=== PATIENT | female | born 1950 | race Caucasian/White ===

== ENCOUNTER 2022-09-06 06:17 | Observation (INO) ==
--- NOTE | 2022-07-26 10:37 | PAT Medication Instructions ---
Medication Instructions Date of Service July 26, 2022 Home Medications acetaminophen 500 mg tablet (Acetaminophen Extra Strength) 1,000 mg PO HS apixaban 5 mg tablet (Eliquis) 5 mg PO BID aspirin 81 mg capsule 81 mg PO QAM cholecalciferol (vitamin D3) 125 mcg (5,000 unit) tablet (Vitamin D3) 125 mcg PO QAM fiber 1 cap PO QPM metoprolol tartrate 50 mg tablet 50 mg PO BID potassium 99 mg tablet 99 mg PO HS simvastatin 40 mg tablet 40 mg PO HS turmeric root extract 500 mg capsule 500 mg PO QPM ASK your prescriber and surgeon apixaban 5 mg tablet (Eliquis) 5 mg PO BID(in order for spinal or epidural anesthesia, Eliquis needs to be stopped 72 hours/3 days before surgery. Please check if okay with doctor that prescribes this to you) STOP taking 2 weeks before surgery fiber 1 cap PO QPM turmeric root extract 500 mg capsule 500 mg PO QPM DO NOT take the morning of surgery cholecalciferol (vitamin D3) 125 mcg (5,000 unit) tablet (Vitamin D3) 125 mcg PO QAM Take morning of surgery With a small sip of water, OTHERWISE NOTHING TO EAT OR DRINK AFTER MIDNIGHT: aspirin 81 mg capsule 81 mg PO QAM (unless directed otherwise by surgeon) metoprolol tartrate 50 mg tablet 50 mg PO BID Take evening before surgery acetaminophen 500 mg tablet (Acetaminophen Extra Strength) 1,000 mg PO HS potassium 99 mg tablet 99 mg PO HS simvastatin 40 mg tablet 40 mg PO HS metoprolol tartrate 50 mg tablet 50 mg PO BID Other Notes If you have any questions please call us at [phone] or [phone] or [phone] or [phone]
--- NOTE | 2022-07-29 14:10 | Anesthesiology Consultation ---
Date of Service July 29, 2022 Assessment & Plan (1) Encounter for pre-operative examination: - pt reports upcoming PCP (Dr. Rodriguez [facility]) and cardiology (Dr. Durand [facility]) pre- op appts, she is unsure of dates. Outpatient joint assessment: Patient is currently scheduled for inpatient pathway. If re-evaluated pending system levels during current pandemic/surgeon requests outpatient pathway, patient is not recommended candidate for outpatient joint program from anesthesia standpoint. Chart Review Chart Review: Pending: Refer to Additional Notes / Consult section and Patient seen in Pre Admission Testing Teaching & Discussion Pre-Anesthesia Teaching/Discussion Notes: Instructed NPO after midnight before surgery, except medications with 15 cc of water. Medication instructions p rovided according to the PAT guidelines. History Surgery Operation Date: 09/06/22 08:10 Proposed Procedures p Right Total Knee Arthroplasty - Peña Castorena DO Height/Weight Height: 5 ft 2 in Weight: 70.307 kg Allergies Allergy/AdvReac Type Severity Reaction Status Date / Time Penicillins Allergy Unknown "not sure Verified 07/26/22 07:34 of reaction, it was many years ago" erythromycin base AdvReac Unknown Nausea Verified 07/26/22 07:34 Medications Home Medications Medication Instructions Recorded Confirmed Last Taken acetaminophen 500 mg tablet 1,000 mg PO HS 07/26/22 07/26/22 Unknown (Acetaminophen Extra Strength) apixaban 5 mg tablet (Eliquis) 5 mg PO BID 07/26/22 07/26/22 Unknown aspirin 81 mg capsule 81 mg PO QAM 07/26/22 07/26/22 Unknown cholecalciferol (vitamin D3) 125 125 mcg PO QAM 07/26/22 07/26/22 Unknown mcg (5,000 unit) tablet (Vitamin D3) fiber 1 cap PO QPM 07/26/22 07/26/22 Unknown metoprolol tartrate 50 mg tablet 50 mg PO BID 07/26/22 07/26/22 Unknown potassium 99 mg tablet 99 mg PO HS 07/26/22 07/26/22 Unknown simvastatin 40 mg tablet 40 mg PO HS 07/26/22 07/26/22 Unknown turmeric root extract 500 mg 500 mg PO QPM 07/26/22 07/26/22 Unknown capsule Past Medical History Medical History (Updated 07/29/22 @ 14:13 by Giselle Pacheco PA-C) A-fib on eliquis; f/u [facility] Last seen 07/2021 - f/u in one year Aortic root dilation Ascending aorat 4.1cm on 07/2021 ECHO Cardiomyopathy Per records Most recent EF on ECHO 2020 55-60% GERD (gastroesophageal reflux disease) controlled, stable per pt History of COVID-19 x2, most recent end of 04/2022, home test, not hosp; body aches, headache>resolved. Hx of simple renal cyst monitoring Hyperlipidemia Hypertension controlled, stable per pt Nausea and vomiting after administration of anesthetic agent severe, denies needing scop patch PFO (patent foramen ovale) Possible cause of CVA in 2010; after stroke, sent to [place] to see if PFO should be closed, 'bj felt it was too dangerous; f/u dr durand, [facility] Stroke 2010, [facility], [place]; [place] peduncle [place]; decreased horizontal vision in her right eye; f/u dr durand, [facility] cardio. Patient denies h/o seizures, heart attack, DM, blood clots or blood transfusions. Exercise / Class Metabolic Activity II 4-5 Yardwork/Stairs/Walk up hill (denies CP or SOB with 1 FOS) Past Surgical History Surgical History Hx of carpal tunnel repair rt. Hx of colonoscopy Hx of laparoscopy removal rt ovary Hx of tonsillectomy Past Anesthesia History No Hx of Anesthesia Complications and No Family Hx of Anesthesia Complications History of PONV History of PONV (severe, denies needing scop patch) and Hx of Motion Sickness Social History Smoking Status: Never smoker Do You Dip or Chew Tobacco: No Hx Alcohol Use: Yes Alcohol type: hard liquor alcohol intake frequency: holidays/special occasions only Hx Substance Use: No substance use type: does not use Review of Systems Patient denies chest pain, shortness of breath, dyspnea on exertion, snoring, witnessed apneas, fever, chills, cough, wheezing, or palpitations. Physical Exam Vital Signs Vitals BP 109/73 P 69 TEMP 97.6 SP02 95% on RA RESP 17 Physical Full cervical extension range of motion without pain TMD 3.5 finger breadths Mallampati Score 2 Dentition: intact, denies chipped or loose teeth, caps/crowns, implants or bridges Lungs: normal respiratory effort. Clear throughout to auscultation, no adventitious breath sounds Cardiac: regular rate and rhythm, no murmurs noted Carotid arteries: negative bruit bilat Lab Results Anesthesia Preop Results Results Anesthesia Widget: WBC 5.62 K/ul (4.8-10.8) 07/29/22 Hgb 14.0 g/dl (12.0-16.0) 07/29/22 Hct 42.9 % (34.1-44.9) 07/29/22 Plt 238 K/uL (130-400) 07/29/22 Na 141 mmol/L (136-145) 07/29/22 K 4.4 mmol/L (3.5-5.1) 07/29/22 Cl 106 mmol/L (98-107) 07/29/22 CO2 31 mmol/L (21-32) 07/29/22 BUN 17 mg/dl (6-23) 07/29/22 Creat 0.54 mg/dl (0.6-1.2) L 07/29/22 Glucose Level 87 mg/dl (70-99(Fasting)) 07/29/22 PT 11.3 Seconds (9.0-12.0) 07/29/22 PTT 28.6 Seconds (21.0-31.0) 07/29/22 INR 1.1 (0.9-1.1) 07/29/22 Urine Color Yellow 07/29/22 Urine Appearance Clear (Clear) 07/29/22 Urine pH 7.0 (4.5-7.5) 07/29/22 Urine Specific [place] 1.015 (1.000-1.030) 07/29/22 Urine Protein Negative (Negative) 07/29/22 Urine Glucose (UA) Negative (Negative) 07/29/22 Urine Ketones Negative (Negative) 07/29/22 Urine Blood Trace (Negative) H 07/29/22 Urine Nitrite Negative (Negative) 07/29/22 Urine Bilirubin Negative (Negative) 07/29/22 Urine Urobilinogen Negative (Negative) 07/29/22 Urine Leukocyte Esterase Negative (Negative) 07/29/22 Urine WBC (Auto) 1-5 /hpf (0-5) 07/29/22 Urine RBC (Auto) 0-4 /hpf (0-4) 07/29/22 Urine Hyaline Casts (Auto) 0 /lpf (0-5) 07/29/22 Urine Epithelial Cells (Auto) 0-5 /lpf (0-5) 07/29/22 Urine Bacteria (Auto) Negative (Negative) 07/29/22 Blood Type A Positive 07/29/22 Antibody Screen NEGATIVE 07/29/22 Testing Electrocardiogram Date: 02/19/22 Sinus rhythm, rate 95 bpm Marked left axis deviation Poor R wave progression Nonspecific T wave abnormality Chest X-Ray Date: 07/29/22 Lung volumes are normal. There is no consolidation to suggest pneumonia. Minimal opacity along the left heart border favors atelectasis. There is no pneumothorax or pleural effusion. Cardiac size is normal. Mediastinal contours are normal. There is no evidence for pulmonary edema. IMPRESSION: No acute cardiopulmonary findings. Echocardiogram Date: 07/30/21 EF 55-60% Cannot rule out RWMA-technically difficult study Ascending aorta 4.1 cm. Trileaflet aortic valve, mild AI Grade I diastolic dysfunction Stress Test Date: 10/25/18 Exercise MPHR 99% METS 7 No EKG criteria for myocardial ischemia EF 67% Normal wall motion COVID-19 Risk Screen Screening Information COVID-19 Screen Date: 07/29/22 Exposure 21 Days Family/Household +COVID Last 21 Days: No Exposure 10 Days Any COVID Exposure Last 10 Days: No Symptoms Last 10 Days Experienced COVID Sx Last 10 Days: No + COVID 0-90 Days COVID + in Last 0-90 Days: No
--- NOTE | 2022-08-12 12:18 | History & Physical Report ---
Date of Service August 12, 2022 date of surgery: 09/06/22 Procedure: Right Total Knee Arthroplasty Surgeon: Peña Castorena Assessment & Plan (1) Arthritis of right knee: Plan: Risks and benefits of procedure discussed in detail today, patient would like to proceed with a Right total knee replacement at [facility] as scheduled. Will resume her Eliquis post op, f/u 2 weeks post op for routine post-operative care and x-ray, sooner if having any problems. will make arrangements for HHPT at the time of discharge. At this point in time, has failed conservative measures and would like to proceed with surgical intervention. The risks and benefits have been discussed including, but not limited to, risk of infection, nerve injury, stiffness, loss of motion, failure to improve, etc. Reasonable outcomes and options of treatment were discussed. An explanation of appropriate alternatives to the procedure that may be advantageous were discussed and their risks and benefits, as well as the risks and benefits of not proceeding with treatment. I offered to answer any additional inquiries concerning the treatment involved. All the patient's questions were answered. The patient is agreeable, understanding of the treatment plan and alternatives, and wishes to proceed with the treatment plan. History of Present Illness Chief Complaint: right knee pain Isabel is a 72-year-old female presents for preop evaluation prior to right total knee replacement. She has been having pain in this knee for many years now which is gradually worsened. She uses Tylenol for pain and is unable to take anti-inflammatories secondary to taking Eliquis for A. fib. At this point time she has failed conservative measures and she would like to proceed with a right total knee replacement Allergies Allergy/AdvReac Type Severity Reaction Status Date / Time Penicillins Allergy Unknown "not sure Verified 07/26/22 07:34 of reaction, it was many years ago" erythromycin base AdvReac Unknown Nausea Verified 07/26/22 07:34 Home Medications Medication Instructions Recorded Confirmed Type acetaminophen 500 mg tablet 1,000 mg PO HS 07/26/22 07/26/22 History (Acetaminophen Extra Strength) apixaban 5 mg tablet (Eliquis) 5 mg PO BID 07/26/22 07/26/22 History aspirin 81 mg capsule 81 mg PO QAM 07/26/22 07/26/22 History cholecalciferol (vitamin D3) 125 125 mcg PO QAM 07/26/22 07/26/22 History mcg (5,000 unit) tablet (Vitamin D3) fiber 1 cap PO QPM 07/26/22 07/26/22 History metoprolol tartrate 50 mg tablet 50 mg PO BID 07/26/22 07/26/22 History potassium 99 mg tablet 99 mg PO HS 07/26/22 07/26/22 History simvastatin 40 mg tablet 40 mg PO HS 07/26/22 07/26/22 History turmeric root extract 500 mg 500 mg PO QPM 07/26/22 07/26/22 History capsule Past Med/Surg History Medical History A-fib on eliquis; f/u [facility] Last seen 07/2021 - f/u in one year Aortic root dilation Ascending aorat 4.1cm on 07/2021 ECHO Cardiomyopathy Per records Most recent EF on ECHO 2020 55-60% GERD (gastroesophageal reflux disease) controlled, stable per pt History of COVID-19 x2, most recent end of 04/2022, home test, not hosp; body aches, headache>resolved. Hx of simple renal cyst monitoring Hyperlipidemia Hypertension controlled, stable per pt Nausea and vomiting after administration of anesthetic agent severe, denies needing scop patch PFO (patent foramen ovale) Possible cause of CVA in 2010; after stroke, sent to [place] to see if PFO should be closed, 'bj felt it was too dangerous; f/u dr durand, [facility] cardio Stroke 2010, [facility], in [place]; [place] peduncle [place]; decreased horizontal vision in her right eye; f/u dr durand, [facility] cardio. Surgical History Hx of carpal tunnel repair rt. Hx of colonoscopy Hx of laparoscopy removal rt ovary Hx of tonsillectomy Social History Smoking Status: Never smoker Second Hand Exposure: Yes ( smoked); Hx Alcohol Use: Yes Alcohol type: hard liquor Hx Substance Use: No Preferred Language: Swazi Communication Ability: Effective Flatbed Stitcher Required: No Beliefs That Will Affect Care: None Current Living Situation: Spouse Feels Safe at Home: Yes Assistive Devices: Glasses Review of Systems Review of Systems: All systems reviewed & are unremarkable except as noted in HPI & below Constitutional: no fever, no chills and no sweats Respiratory: no cough and no dyspnea Cardiovascular: no chest pain, no dyspnea and no orthopnea Gastrointestinal: no abdominal pain, no nausea and no vomiting Musculoskeletal: as per Subjective / HPI Physical Exam Physical Exam: HT: 5ft 2in WT: 71.9kg Constitutional: WD/WN, vitals as above no acute distress Respiratory: normal respiratory effort, lungs clear to auscultation no respiratory distress, no labored breathing and does not use accessory muscles Cardiovascular: RRR, no murmur, no edema Gastrointestinal (Abdomen): normal bowel sounds, soft, nontender, no hepatosplenomegaly Musculoskeletal: Knee: + knee abnormal to inspection (RIGHT KNEE), + effusion (+1 effusion), + limited ROM of knee (ROM 0/3/110), + knee ROM with crepitation, + joint line tenderness (medial joint line) and + La's sign positive; no deformity, no skin erythema, no ecchymosis, no valgus laxity, no varus laxity, anterior drawer test negative, Nahum's sign negative and pivot shift test negative Results & Data Results & Data ([facility]) Diagnostic Findings AP and flexion view of the right knee show advanced degenerative changes to the right knee greatest lateral compartment with overall valgus alignment, showing joint space narrowing osteophyte formation subchondral sclerosis. No acute bony pathology
[~2022-09-06 06:17] MED LIST: ACETAMINOPHEN 500 MG TAB PO SCH; CeleBREX 200 MG CAP PO SCH; FAMOTIDINE 20 MG TAB PO SCH; GABAPENTIN 300 MG CAP PO SCH; LR 500ML BOLUS, THEN 15ML/HR IV SCH; METOCLOPRAMIDE HCL 10 MG TABLET PO SCH; ROPIVACAINE 0.5% HCL/PF 150 MG, BUPIVACAINE 0.75% MPF 20 ML, EPINEPHrine 30MG/30ML (OR ... INFIL SCH; VANCOMYCIN HCL 1,000 MG/270 ML BAG IV SCH; dexAMETHasone 4 MG TAB PO SCH
[2022-09-06] MEDS ORDERED: BUPIVACAINE 0.25% 30 ML VIAL ONE (06:36)
[2022-09-06] MEDS ORDERED: EPINEPHrine INJ 1 MG/ML AMP ONE (06:36)
[2022-09-06] MEDS ORDERED: DEXAMETHASONE SOD INJ 4 MG/ML VIAL ONE (06:36)
[2022-09-06] MEDS ORDERED: BUPIVACAINE 0.5 % 5 MG/1 ML PF 10ML VIAL ONE (06:36)
[2022-09-06] MEDS ORDERED: PROPOFOL IV EMULSION 10 MG/ML 20 ML VIAL IV ONE (08:12)
[2022-09-06] MEDS ORDERED: LIDOCAINE 2% MPF LOCAL 5 ML VIAL INFIL ONE (08:12)
[2022-09-06] MEDS ORDERED: MIDAZOLAM HCL 1 MG/ML 2ML VIAL ONE (08:12)
[2022-09-06] MEDS ORDERED: ONDANSETRON INJ 2 MG/ML 2 ML VIAL ONE (08:12)
[2022-09-06] MEDS ORDERED: fentaNYL citrate 100 MCG/2 ML VIAL ONE ×2 (08:12→10:19)
[2022-09-06] MEDS ORDERED: ONDANSETRON INJ 2 MG/ML 2 ML VIAL IV PRN ×2 (08:59→13:54)
[2022-09-06] MEDS ORDERED: TRANEXAMIC ACID / 0.7% NACL 1,000 MG/100 ML BAG IV ONE ×2 (08:59)
[2022-09-06] MEDS ORDERED: PROMETHAZINE HCL 6.25 MG in SODIUM CHLORIDE 0.9% 50 ML IV PRN (08:59)
[2022-09-06] MEDS ORDERED: fentaNYL citrate 100 MCG/2 ML VIAL IV PRN (08:59)
[2022-09-06] MEDS ORDERED: ePHEDrine sulfate 50 MG/ML AMP IV PRN (08:59)
[2022-09-06] MEDS ORDERED: ATROPINE SULFATE 0.1 MG/ML 10ML SYR IV PRN (08:59)
[2022-09-06] MEDS ORDERED: TRANEXAMIC ACID / 0.7% NACL 1000MG/100ML BAG IV ONE (09:03)
--- NOTE | 2022-09-06 09:03 | History & Physical Bridge Note ---
Date of Service September 06, 2022 History & Physical Bridge Note I have examined the patient, reviewed the History & Physical and in the interval since the performance of the History & Physical I have noted the following changes of clinical significance: no changes noted
[2022-09-06] MEDS ORDERED: ORTHO JOINT ANESTHETIC ONE (10:03)
[2022-09-06] MEDS ORDERED: GLYCOPYRROLATE 0.2 MG/ML VIAL ONE (10:45)
--- NOTE | 2022-09-06 11:10 | Operative Report ---
Post Operative Report Pre & Post Diagnosis Operation Date: 09/06/22 09:35 Pre-Op Diagnosis: Arthritis of Right Knee Post-Op Diagnosis: Arthritis of Right Knee I identified the patient and participated in the time-out.: Yes Procedure Operation Date: 09/06/22 09:35 Actual Procedures p Right Total Knee Arthroplasty(Right) utilizing [employer] journey 2 p atient matched size femur 5 tibia 3 polythirteen patella 29 braden- Peña Castorena DO Surgeon Peña Castorena DO [employer] QUIN Contreras Estimated Blood Loss 5 Findings Consistent with Post-Op Diagnosis Patient presents severe end-stage tricompartmental DJD hyperextension recurvatum medial lateral collateral ligament laxity. Eburnated [id number] subchondral sclerosis and marginal osteophytes Specimens Bone and cartilage Drains Medium bore Hemovac Anesthesia Type MAC Spinal Regional Complications none Disposition Accompanied Patient To Recovery: No Disposition: Recovery Room Indications Patient presents severe end-stage DJD failed attempted conservative measures including physical therapy anti-inflammatories relative rest activity modification corticosteroid injection viscosupplementation relative rest the above intraoperative findings were noted Description of Procedure After proper prepping and draping of the Right lower extremity anterior midline incision was made over the region of the extensor extensor mechanism after meticulous hemostasis was obtained and maintained in subcutaneous tissues a medial parapatellar incision was made The patella was subluxed lateralward the medial lateral gutter were cleaned from any hypertrophic synovitis and scar tissue of the distal femoral block was placed and the distal femoral osteotomy cut was made subsequently the chamfers anterior and posterior osteotomy cuts were made utilizing the 4-in-1 block the tibia was subsequently subluxed anteriorward medial and ateral meniscal remnants were excised in their entirety remnants of the anterior and posterior cruciate ligaments were excised in their entirety excellent exposure of the proximal tibia was obtained the tibial osteotomy guide was placed on the proximal tibial osteotomy cut was made once again the knee was irrigated with copious amounts of sterile saline solution the patella was subsequently everted lateralward thickened scar tissue around the patella was removed the patella was subsequently cut utilizing a freehand technique and was drilled prepared for final preparation and placement of patella socially flexion-extension gaps were checked and the equal and symmetric trials were placed to the appropriate femoral and tibial trials with poly-spacer being placed for equal flexion and extension gaps and full range of motion including extension to 0 and flexion to 140 the trial components after having been taken to recovery range of motion was subsequently removed meticulous hemostasis was obtained and maintained subsequently a knee block injection of joint cocktail including ropivacaine 0.5% 150 mg. Bupivacaine 0.5% epinephrine 1-200,030 mL's toradol 30 mg dexamethasone 4 mg ketamine 10 mg clonidine 100 micrograms normal saline solution 30 mg was infiltrated into the soft tissues of the posterior knee medial lateral gutters and periosteal synovium special attention was paid to protect neurovascular structures at all times subsequently trial components having been removed the knee was irrigated with sterile saline solution. debris was removed the proximal tibia was subsequently prepared and was made ready for the placement of the tibial component tibial component was also cemented and tamped into position the femoral component was subsequently placed and cemented in the position the patellar component was subsequently cemented in position because hemostasis once again obtained and maintained wound having been thoroughly irrigated with debridement and debridement lavage was performed as well as a medial parapatellar incision closed with #1 Vicryl in interrupted fashion subcutaneous was closed with #2 Vicryl skin was closed with skin clips. PA-C was necessary for prepping and drapping as well as wound closure of deep fascia Sub cutaneous tissue and skin and was necessary for the case. A sterile compressive dressing was placed patient was taken to recovery in stable condition of report dictated by Raffaele I attest to the content of the Intraoperative Record and any orders documented therein. Any exceptions are noted below.Due to the complex nature of the procedure, the entire surgery was performed with the operational assistance of QUIN Contreras. The digital marketing assistant, under direct supervision, was involved in the actual performance of all aspects of the surgical procedure including hemostasis, tissue retraction and incision, instrument management, patient positioning, and wound closure. I attest to the content of the Intraoperative Record and any orders documented therein. Any exceptions are noted below.
--- NOTE | 2022-09-06 11:57 | Anesthesiology Progress Note ---
Date of Service September 06, 2022 Anesthesia Post Procedure Vital Signs Vital Signs: Temp Pulse Resp BP Pulse Ox O2 Del Method 09/06/22 06:52 36.5 C 63 18 145/96 H 99 Room Air Transfer of Care Handoff Completed per policy Notes Mental Status: alert / awake / arousable Patient Amnestic to Procedure: Yes Nausea / Vomiting: adequately controlled Pain: adequately controlled Airway Patency, RR, SpO2: stable & adequate BP & HR: stable & adequate Hydration State: stable & adequate Anesthetic Complications: no major complications apparent
[2022-09-06] MEDS ORDERED: NALOXONE HCL 0.4 MG/1 ML VIAL/CARP IV PRN (13:54)
[2022-09-06] MEDS ORDERED: diphenhydrAMINE Capsule 25 MG CAP PO PRN (13:54)
[2022-09-06] MEDS ORDERED: MAGNESIUM HYDROXIDE SUSP 30 ML UDC PO PRN (13:54)
[2022-09-06] MEDS ORDERED: oxyCODONE HCL IR 5 MG TAB (IMMEDIATE RELEASE) PO PRN (13:54)
[2022-09-06] MEDS ORDERED: METOCLOPRAMIDE HCL INJ 5 MG/ML 2 ML VIAL IV PRN (13:54)
[2022-09-06] MEDS ORDERED: HYDROmorphone INJ 1 MG/ML SYRINGE IV PRN (13:54)
[2022-09-06] MEDS ORDERED: bisacodyL 10 MG SUPP PR PRN (13:54)
[2022-09-06] MEDS ORDERED: VANCOMYCIN CONSULT ACTIVE PRN (13:54)
--- NOTE | 2022-09-06 14:39 | XRay Report ---
XR knee RT 1 or 2V routine CLINICAL HISTORY: Surgical Post Op TECHNIQUE: 2 views of the right knee were obtained. Comparison: None available at the time of this dictation. FINDINGS: Patient is status post total knee arthroplasty with expected postsurgical changes including soft tiss ue swelling and subcutaneous emphysema. No periarticular lucency or hardware fracture is seen. IMPRESSION: Expected postoperative appearance status post placement of total knee arthroplasty. ACT 112: Negative or not required by law. Electronically signed by: Riley Horan M.D. 09/06/2022 2:38 PM
[2022-09-06] MEDS: ACETAMINOPHEN 500 MG TAB PO SCH ×2 (14:45→20:42)
[2022-09-06] MEDS: SODIUM CHLORIDE 0.9% 1000ML 1,000 ML IV SCH (14:46)
--- NOTE | 2022-09-06 14:47 | Hospitalist Consultation ---
Date of Consultation September 06, 2022 Assessment & Plan (1) Status post total right knee replacement: -Patient is currently afebrile, hemodynamically stable, and stable on 2L NC -Perioperative abx, DVT PPX, IV fluids, and analgesia per the primary team -Agree with am CBC and BMP -Patient noted to have some soft blood pressures of 109/70 post-op, she took her am dose of metoprolol and also had spinal anesthesia per the operative report, would continue the IV fluids overnight as she has no significant hear failure and appears Euvolemic on exam -Ordered daily famotidine for stress ulcer prophylaxis while admitted -Medicine will continue to follow for now (2) Hypertension: -Continue metoprolol as long as she is hemodynamically stable (3) A-fib: -Currently rate controlled -Continue metoprolol -Agree with restarting Eliquis tomorrow as long as she is stable, as stable Hgb, and is without signs of active bleeding (4) Cardiomyopathy: -Currently euvolemic on exam -LVEF of 55-60% as of 2020 -Continue IV fluids for now and monitor for signs of volume overload (5) Hyperlipidemia: -Conitnue statin (6) GERD (gastroesophageal reflux disease): -daily famotidine while admitted Plan The patient was discussed with Dr. Atwood at the time of the consult Supervising Physician Co-Signing Physician Notes I personally saw and examined the patient. I verified all viramontes points and agree with Tani Cordon PA-C with the following exceptions and/or additions: 72 year old POD #0, right TKA. Feeling tired but otherwise no complaints. No dizziness on standing. Took her metoprolol this morning pre-operatively. O/E A&Ox3, RRR, HS1+2, no murmurs, Chest CTAB, Abdo SNT A/P Pain, VTE management per orthopedics HTN, paroxysmal a. fib - continue metoprolol and reduce parameters to HR < 50 for holding, Eliquis restart per orthopedic recommendations Thank you for the consult. No acute medical needs identified and she appears to be stable from a medical perspective. We will continue to chart check but sign off at this time. Please call [facility] [place] health promotion manager for any questions or concerns. History of Present Illness Reason for Consultation: Post-op medical management Requesting Physician: Peña J Castorena, DO Attending Physician: Dr. Ramy Atwood History of Present Illness Isabel is a 72 year old female with a PMH significant for afib on eliquis, hyperlipidemia, HFpEF (LVEF of 55-60% as of 07/30/21) aneurysm of the ascending aorta without rupture, CAD, and vitamin D deficiency who presented to the [facility] OR on 09/06/22 for elective Right Total Knee Arthroplasty with Dr. Castorena. Per the operative report, there were no reported intraoperative complications, anesthesia was listed as "[facility]", and EBL was listed at 5 cc. Review of her vitals prior to evaluation show a stable BP, HR in the 50's-70's, and shows the patient stable on 2L NC. At the time of the exam the patient was resting comfortably in bed in no acute distress with her sitting bedside. When asked, she states that she is having some mild RLE pain and fatigue after her procedure, otherwise she has no other complaints. I confirmed with her that she had her am dose of metoprolol prior to her procedure. When asked, she does not wear oxygen at baseline and does not use CPAP or bipap at night. Please refer to Dr. Atwood's attestation for any changes to the treatment plan Allergies Allergy/AdvReac Type Severity Reaction Status Date / Time Penicillins Allergy Unknown "not sure Verified 09/06/22 06:46 of reaction, it was many years ago" erythromycin base AdvReac Unknown Nausea Verified 09/06/22 06:46 Home Medications Medication Instructions Recorded Confirmed Type acetaminophen 500 mg tablet 1,000 mg PO HS 07/26/22 09/06/22 History (Acetaminophen Extra Strength) apixaban 5 mg tablet (Eliquis) 5 mg PO BID 07/26/22 09/06/22 History aspirin 81 mg capsule 81 mg PO QAM 07/26/22 09/06/22 History cholecalciferol (vitamin D3) 125 125 mcg PO QAM 07/26/22 09/06/22 History mcg (5,000 unit) tablet (Vitamin D3) fiber 1 cap PO QPM 07/26/22 09/06/22 History metoprolol tartrate 50 mg tablet 50 mg PO BID 07/26/22 09/06/22 History potassium 99 mg tablet 99 mg PO HS 07/26/22 09/06/22 History simvastatin 40 mg tablet 40 mg PO HS 07/26/22 09/06/22 History turmeric root extract 500 mg 500 mg PO QPM 07/26/22 09/06/22 History capsule acetaminophen 500 mg tablet 1,000 mg PO Q8 21 days #126 tabs 09/06/22 Rx (Tylenol Extra Strength) cefadroxil 500 mg capsule 500 mg PO BID 14 days #28 caps 09/06/22 Rx docusate sodium 100 mg capsule 100 mg PO BID 10 days #20 caps 09/06/22 Rx oxycodone 5 mg tablet 5 - 10 mg PO Q6H PRN pain #30 tabs 09/06/22 Rx Patient History Medical History (Updated 09/06/22 @ 15:07 by Tani Cordon PA-C) A-fib on eliquis; f/u Dr Durand, [facility] Last seen 07/2021 - f/u in one year Aortic root dilation Ascending aorat 4.1cm on 07/2021 ECHO Cardiomyopathy Per records Most recent EF on ECHO 2020 55-60% GERD (gastroesophageal reflux disease) controlled, stable per pt History of COVID-19 x2, most recent end of 04/2022, home test, not hosp; body aches, headache>resolved. Hx of simple renal cyst monitoring Hyperlipidemia Hypertension controlled, stable per pt Nausea and vomiting after administration of anesthetic agent severe, denies needing scop patch PFO (patent foramen ovale) Possible cause of CVA in 2010; after stroke, sent to [facility] to see if PFO should be closed, dr's felt it was too dangerous; f/u dr durand, [facility] Stroke 2010, [facility], in [place]; left cerebral peduncle [place]; decreased horizontal vision in her right eye; f/u dr durand, [facility]. Surgical History (Updated 09/06/22 @ 15:07 by Tani Cordon PA-C) Hx of carpal tunnel repair rt. Hx of colonoscopy Hx of laparoscopy removal rt ovary Hx of tonsillectomy Social History Smoking Status: Never smoker Second Hand Exposure: Yes ( smoked); Do You Dip or Chew Tobacco: No; Tobacco Cessation Education Requested by Patient: No Hx Alcohol Use: Yes Alcohol type: hard liquor Hx Substance Use: No Preferred Language: Urdu Communication Ability: Effective Electronic Warfare Specialist Required: No Beliefs That Will Affect Care: None Current Living Situation: Spouse Other Information That Helps Us Care for You: No Feels Safe at Home: Yes Safety Concerns: Feels Safe At This Time Assistive Devices: Glasses Review of Systems Review of Systems: Denies current fever, chills, headache, changes in vision, hearing, taste, and smell, chest pain, SOB, cough, abdominal pain, nausea, vomiting, diarrhea, hematemesis, melena, dysuria, hematuria, and recent falls. All systems have been reviewed and are otherwise negative. Physical Exam Physical Exam: Physical Exam: General: In no acute distress, stated age, well-nourished, good hygiene, non- toxic appearing HEENT: Normocephalic, atraumatic, no scleral icterus, pupils around round, symmetrical, and reactive to light, moist mucus membranes, trachea midline, no thyromegaly Chest/Pulm: No respiratory distress, symmetrical chest expansion, clear breath sounds throughout Cardiac: RRR, no murmurs noted Abdomen: Negative for ascites and bruising, normoactive bowel sounds, soft, non-tender to palpation throughout Musculoskeletal: patient with RLE currently wrapped and with drain in place, no signs of infection at the drain site and no draining noted on her leg wrap, patient with intact motor function, sensation, and cap refill in the BL feet Extremities: Radial, dorsalis pedis, and posterior tibial pulses are intact and symmetrical, no edema noted in the BL LE's Skin: Warm, dry, no rashes , lesions, or scars noted Neuro: Alert and oriented to person, place, month, year, and president, no focal defects, CN II-XII tested and intact, finger to nose test negative, no tremors noted Psych: No acute distress, calm and cooperative during the exam Results & Data Results & Data ([facility]) Vital Signs (Past 12 Hours) Vital Signs Temp Pulse Pulse Resp BP Pulse Ox O2 Del Method 09/06/22 13:50 Nasal Cannula 09/06/22 13:50 36.5 C 57 L 16 109/70 97 Nasal Cannula 09/06/22 13:25 60 14 111/66 96 Nasal Cannula 09/06/22 12:55 56 L 13 109/69 97 Nasal Cannula 09/06/22 12:25 36.2 C L 60 19 111/71 92 Nasal Cannula 09/06/22 12:15 63 15 115/74 92 Oxymask 09/06/22 12:05 59 L 10 L 120/76 94 Oxymask 09/06/22 11:55 61 12 121/74 94 Oxymask 09/06/22 11:46 36.1 C L 70 15 118/83 97 Oxymask 09/06/22 06:52 36.5 C 63 18 145/96 H 99 Room Air O2 Flow Rate 09/06/22 13:50 2 09/06/22 13:50 2 09/06/22 13:25 2 09/06/22 12:55 2 09/06/22 12:25 2 09/06/22 12:15 2 09/06/22 12:05 4 09/06/22 11:55 4 09/06/22 11:46 10 09/06/22 06:52 Diagnostic Findings Knee X-Ray 09/06/22 11:56 XR knee RT 1 or 2V routine CLINICAL HISTORY: Surgical Post Op TECHNIQUE: 2 views of the right knee were obtained. Comparison: None available at the time of this dictation. FINDINGS: Patient is status post total knee arthroplasty with expected postsurgical changes including soft tissue swelling and subcutaneous emphysema. No periarticular lucency or hardware fracture is seen. IMPRESSION: Expected postoperative appearance status post placement of total knee arthroplasty. ACT 112: Negative or not required by law. Electronically signed by: Riley Horan M.D. 09/06/2022 2:38 PM ECG Additional Comments: No ecg available at the time of the consult PG Care Time/CCT Total # of Minutes Spent Total Time Spent with Patient: Total time spent is greater than 50% in coordination of care (as documented) at patient's floor/unit and/or counseling patient: Coding Level of Care Code Established Pt INP/OBS CONSULT LVL 4, 60 MIN Patient Type Established Medical Decision Making High Complexity Diagnoses Status post total right knee replacement Z96.651 Hypertension I10 A-fib I48.91 Cardiomyopathy I42.9 Hyperlipidemia E78.5 GERD (gastroesophageal reflux disease) K21.9
[2022-09-06] MEDS: METOPROLOL TARTRATE 50 MG TAB PO SCH (20:43)
[2022-09-06] MEDS: DOCUSATE SODIUM 100 MG CAP PO SCH (20:44)
[2022-09-06] MEDS ORDERED: VANCOMYCIN HCL 1,000 MG in SODIUM CHLORIDE 0.9% 250 ML IV SCH (21:00)
[2022-09-06] MEDS ORDERED: SIMVASTATIN 40 MG TAB PO SCH (21:00)
[2022-09-06] MEDS ORDERED: CALCIUM POLYCARBOPHIL 625MG TAB PO SCH (21:00)
[2022-09-06] MEDS ORDERED: POTASSIUM CHLORIDE 10 MEQ TABCR PO SCH (21:00)
[2022-09-06] MEDS ORDERED: SENNA 8.6 MG TAB PO SCH (21:00)
[2022-09-06] MEDS ORDERED: VANCOMYCIN HCL 1,000 MG in SODIUM CHLORIDE 0.9% 500 ML IV SCH (22:00)
[2022-09-07] MEDS: SODIUM CHLORIDE 0.9% 1000ML 1,000 ML IV SCH (00:22)
[2022-09-07] MEDS: ACETAMINOPHEN 500 MG TAB PO SCH (05:53)
[2022-09-07 07:29] LABS: Hematocrit (blood only) 36.8 % (34.1-44.9); Hemoglobin 11.9 g/dl (12.0-16.0); Mean Corpuscular Hemoglobin 30.4 pg (25.0-34.0); Mean Corpuscular Hgb Conc 32.3 g/dL (32.0-36.0); Mean Corpuscular Volume 94.1 fL (80.0-100.0); Mean Platelet Volume 9.7 fL (9.4-12.3); Platelet Count 221 K/uL (130-400); RDW Coefficient of Variation 13.3 % (11.5-14.5); RDW Standard Deviation 46.1 fL (36.4-46.3); Red Blood Count 3.91 M/uL (3.93-5.22); White Blood Count 13.08 K/ul (4.8-10.8)
[2022-09-07] MEDS: DOCUSATE SODIUM 100 MG CAP PO SCH ×2 (07:42→10:10)
[2022-09-07] MEDS: FAMOTIDINE 20 MG TAB PO SCH ×2 (07:42→10:10)
[2022-09-07] MEDS: METOPROLOL TARTRATE 50 MG TAB PO SCH ×2 (07:42→10:10)
[2022-09-07] MEDS: MULTIVITAMIN TAB PO SCH ×2 (07:43→10:11)
[2022-09-07 08:01] LABS: Calcium 8.6 mg/dl (8.5-10.1); Creatinine Clr Calc Pharmacy 93.5 ml/min; Est GFR (African American) 112.1 ml/min; Est GFR (Non-African American) 96.7 ml/min; Potassium 4.3 mmol/L (3.5-5.1)
--- NOTE | 2022-09-07 08:02 | Orthopedic Progress Note ---
Date of Service September 07, 2022 Assessment & Plan (1) Arthritis of right knee: Plan: Postop day #1 right total knee arthroplasty -PT/OT -DVT prophylaxis: SCDs, teds, home Eliquis -Pain management as written -A.m. labs are pending -Discharge planning: Plan on discharge home with home health PT. Plan on discharge home today. Admission and Anticipated Discharge Date Admission Date: September 06, 2022 Subjective Patient is postop right total knee. She is doing well this morning. Minimal pain. No other complaints. Denies chest pain, shortness of breath, nausea/vomiting/diarrhea, lightheadedness/dizziness. Hoping to go home today. Review of Systems Review of Systems: All systems reviewed & are unremarkable except as noted in Subjective Physical Exam Physical Exam: Right knee: Dressing is clean, dry, intact. Toes are mobile with good dorsiflexion. No calf tenderness. Able to do a straight leg raise. Distally neurovascular status and sensation grossly intact. Constitutional: WD/WN, vitals as above Results & Data ([facility]) Vital Signs (Past 12 Hours) Vital Signs Temp Pulse Pulse Resp BP Pulse Ox O2 Del Method 09/07/22 07:28 36.6 C 56 L 16 110/67 94 Room Air 09/07/22 02:26 36.6 C 58 L 16 102/56 L 93 Room Air 09/06/22 21:15 36.3 C L 67 16 108/65 94 Room Air
[2022-09-07] MEDS ORDERED: APIXABAN 5 MG TABLET PO SCH (09:00)
[2022-09-07] MEDS ORDERED: ASPIRIN 81 MG ECTAB PO SCH (09:00)
[2022-09-07] MEDS ORDERED: CHOLECALCIFEROL 5,000 UNITS 125 MCG TAB PO SCH (09:00)
--- NOTE | 2022-09-07 09:14 | Hospitalist Progress Note ---
Date of Service September 07, 2022 Assessment & Plan (1) Status post total right knee replacement: Plan: POD #1 s/p Right Total Knee Arthroplasty(Right) utilizing [employer] alexisney 2 patient matched size femur 5 tibia 3 polythirteen patella 29 braden- Peña Castorena DO. EBL 5cc WBC elevation likely 2nd to steroids, afebrile hgb 14-->11.9, acute blood loss anemia from surgery as well as dilutional from IVF Pain control, antiemetics, PT/OT per primary service DVT proph - Eliquis resumed for today Continues on metoprolol, BPs borderline (reports doesn't check at home either, low post-op as well, kidney function stable) for her pafib . Rec'd she check at home Pepcid IV ordered for stress ulcer prophylaxis Dispo per primary service (2) Hypertension: Plan: VSS stable, outlined as above Continued on meotpolol (3) A-fib: Plan: Examines in sinus, on metoprolol which has been continued Eliquis resumed for this morning (4) Cardiomyopathy: Plan: Currently euvolemic on exam -LVEF of 55-60% as of 2020 IVF continued through last evening, tolerating PO Volume status stable on exam, no CP/SOB reported (5) Hyperlipidemia: Plan: Continue statin (6) GERD (gastroesophageal reflux disease): Plan: -daily famotidine while admitted Plan Thank you for allowing hospitalist service to participate in the care of Ms Abarca. Hospitalist service will sign off at this time, patient planning for discharge this afternoon Please call with any questions/concerns Admission and Anticipated Discharge Date Admission Date: September 06, 2022 Supervising Physician Co-Signing Physician Notes QUIN Supervision Note: I did not personally see or examine the patient today, but I verified all viramontes points of QUIN Villafuerte's assessment and plan with the following exceptions/additions: None Subjective eval this morning, sitting up at side of bed doing well, pain controlled. to have hemovac pulled but nursing and planning for dc today no palpitations (she typically states she knows when she is in that rhythm). RN to give metoprolol this AM, blood pressure borderline, but no lightheadedness/dizziness, agreed to take. Rec'd to monitor BPs at home as she does not routinely check these. Pushing fluids, eating/drinking no issues, passing gas. Questions/concerns addressed at this time. Review of Systems Review of Systems: All systems reviewed & are unremarkable except as noted in HPI & below Physical Exam Physical Exam: General: WN/WD female sitting up at side of bed, NAD HEENT head normocephalic, atraumatic, mmm, trachea midline Resp CTAB no w/c/r, on room air CV: RRR< no m/r/g, no calf tenderness GI: +BS, soft NT : no burgess MSK/Neuro: hemovac w bloody drainage, johann R knee dressing intact, pulses palpable, calves nontender, strength equal bilaterally Skin: warm, dry Psych: AOx3, pleasant and cooperative Results & Data Results & Data ([facility]) Vital Signs (Past 12 Hours) Vital Signs Temp Pulse Pulse Resp BP Pulse Ox O2 Del Method 09/07/22 07:28 36.6 C 56 L 16 110/67 94 Room Air 09/07/22 02:26 36.6 C 58 L 16 102/56 L 93 Room Air 09/06/22 21:15 36.3 C L 67 16 108/65 94 Room Air Laboratory Results 09/07/22 09/07/22 09/07/22 Range/Units 06:56 06:56 06:56 WBC 13.08 H (4.8-10.8) K/ul RBC 3.91 L (3.93-5.22) M/uL Hgb 11.9 L (12.0-16.0) g/dl Hct 36.8 (34.1-44.9) % MCV 94.1 (80.0-100.0) fL MCH 30.4 (25.0-34.0) pg MCHC 32.3 (32.0-36.0) g/dL RDW Std Deviation 46.1 (36.4-46.3) fL RDW Coeff of Bernardo 13.3 (11.5-14.5) % Plt Count 221 (130-400) K/uL MPV 9.7 (9.4-12.3) fL Sodium 140 (136-145) mmol/L Potassium 4.3 (3.5-5.1) mmol/L Chloride 111 H (98-107) mmol/L Carbon Dioxide 26 (21-32) mmol/L Anion Gap 3 (3-11) BUN 22 (6-23) mg/dl Creatinine 0.50 L (0.6-1.2) mg/dl Est Cr Clr Drug Dosing 93.5 ml/min Est GFR ( Amer) 112.1 ml/min Est GFR (Non-Af Amer) 96.7 ml/min BUN/Creatinine Ratio 44.0 H (10-20) Glucose 120 H (70-99(Fasting)) mg/dl Calcium 8.6 (8.5-10.1) mg/dl Hepatitis C Ab (EIA) Pending Hep C Ab Signal/Cutoff Pending PG Care Time/CCT Total # of Minutes Spent Total Time Spent with Patient: Total time spent is greater than 50% in coordination of care (as documented) at patient's floor/unit and/or counseling patient: Coding Level of Care Code 03617 SUB INP/OBS CARE 09/21MIN Diagnoses Status post total right knee replacement Z96.651 Hypertension I10 A-fib I48.91 Cardiomyopathy I42.9 Hyperlipidemia E78.5 GERD (gastroesophageal reflux disease) K21.9
--- NOTE | 2022-09-07 16:21 | Discharge Summary ---
Date of Service date of discharge: September 07, 2022 date of admission: 09/06/22 Principal Diagnosis right knee arthritis Discharge Data Allergies Allergy/AdvReac Type Severity Reaction Status Date / Time Penicillins Allergy Unknown "not sure Verified 09/06/22 06:46 of reaction, it was many years ago" erythromycin base AdvReac Unknown Nausea Verified 09/06/22 06:46 Consultations 09/01/22 15:25 Consult Hospitalist Routine Procedures Performed Operation Date: 09/06/22 09:35 Actual Procedures p Right Total Knee Arthroplasty(Right) - Peña Cruz DO Ordered Studies 09/06/22 05:00 US - OR guided needle placemen Routine Hospital Course (1) Arthritis of right knee: Postop day #1 right total knee arthroplasty -PT/OT -DVT prophylaxis: SCDs, teds, home Eliquis -Pain management as written -A.m. labs are pending -Discharge planning: Plan on discharge home with home health PT. Plan on discharge home today. Total Time Total Time Spent Total Time Spent (In Minutes): 20 Discharge Plan Discharge Items Patient Disposition: Home - Home Health Services Reason For Visit: POST OP TKA Discharge Diagnosis: right total knee replacement Activity: Per Instructions section Lifting: Wait until after follow-up appointment Weightbearing Comment: WBAT with walker Non-emergency contact: Surgeon Call non-emergency contact if: you have any medication questions, your temperature is above 101, your wound has increased redness, your wound has increased drainage and your wound pain has increased Follow-up/Referrals: PCP,NO [Primary Care Provider] - Diet: Regular Addtl Attending Provider Instructions: ACTIVITY RECOMMENDATIONS: SELF CARE INSTRUCTIONS AFTER TOTAL KNEE REPLACEMENT A. You may need to continue a physical therapy program after discharge from the hospital. There are several options available to you. Your doctor will assist you in selecting the best one for you. 1. An out-patient facility 2 to 3 times a week for therapy or home therapy. 2. Continue working on all exercises taught to you in the hospital. Your goals should be to increase bending of your knee to 90 degrees and beyond and to fully straighten your knee. B. You may progress at your own pace from walking with a walker or crutches to a cane; then to no assistive devices. C. Make walking a part of your daily routine. Be up as much as comfortable with rest periods throughout the day. Rest with leg elevation is very important. Use the ice wrap frequently for the first 3-4 weeks. D. There are no restrictions on activities. You may ride in a car, shop, participate in lamps tester and inspector and all social activities. E. Wear the long elastic stockings (CARLA hose) 20 hours a day for 2 weeks after surgery. They can be removed several times a day for laundering and for a bath. F. You may shower, no tub baths until cleared by your doctor. SPECIAL CARE INSTRUCTIONS: VERY IMPORTANT TO READ AND REVIEW A. There are a few signs you need to watch for after you are home. Call [facility] if you notice any of the followin. Increased severe knee pain. Some pain is expected especially when you exercise. 2. Increased swelling in your leg or knee; pain or swelling of the calf muscle in either lower leg. 3. Any fluid drainage from the incision. 4. Shortness of breath or chest pain. B. Please call [facility] at if you have any concerns or questions about your operation or recovery. The doctor or his nurse will return your call promptly. C. You must take antibiotics before dental work, bladder, bowel or other surgery. Your doctor will provide you with a permanent care to carry describing this precaution. IMPORTANT: * REMEMBER TO TAKE ASPIRIN, 81 MG, TWICE DAILY FOR 4 WEEKS UNLESS OTHERWISE DIRECTED. THIS IS YOUR BLOOD THINNER. * HIGH RISK PATIENTS MAY BE PRESCRIBED A STRONGER BLOOD THINNER. THIS WILL BE PROVIDED AT DISCHARGE. * CALL IF INCREASED PAIN, REDNESS, DRAINAGE OR FEVER GREATER THAT 101. * WEAR CARLA HOSE 20 HOURS PER DAY FOR 2 WEEKS. * DRESSING INSTRUCTIONS * ILIANA Dressing- This is a large suction dressing covering your incision. This will help pull any excess drainage from the wound and allow your incision to heal properly. You may shower with this if you can keep the unit outside of the shower. If any bleeding or leakage is noted please call your doctor's office. This will remain on your incision for 7 days and then should be removed. This can be done yourself or by the home nursing staff if applicable. The entire unit is disposable once removed. Once removed, keep incision clean and dry. If redness or drainage is noted, please call your surgeon. ONCE ILIANA IS REMOVED, FOLLOW THESE INSTRUCTIONS: DERMABOND Prineo- This is a mesh tape dressing that is covered with glue. It should remain in place until the incision is properly healed, usually 10-14 days. This dressing is designed to naturally slough off. You may trim the excess mesh tape as it peels off. Incision may be briefly wet in a shower. Dry immediately by blotting with a clean, dry towel. Do not bath or swim until instructed by your doctor. Do not scratch, rub, or pick at the dressing. Do not apply any topical ointments or lotions until dressing is completely removed and/or instructed by your doctor. There may be a small piece of suture material at one end of your incision. Do not pull or trim this. If it is bothersome or catching on clothing, you may cover it with a band-aid. IF INCISION IS LEAKING THROUGH DRESSING, CALL THE OFFICE . FOLLOW UP VISIT: If appointment is not already scheduled: Please call [facility] to make a follow-up appointment for 2 weeks after your surgery at . Pending Studies at Discharge: No Stand-Alone Forms: My [facility] Medications and DC Order Prescriptions: New acetaminophen [Tylenol Extra Strength] 500 mg Tablet 1,000 mg PO Q8 21 Days Qty: 126 0RF oxycodone 5 mg Tablet 5 - 10 mg PO Q6H PRN (Reason: pain) Qty: 30 0RF Rx Instructions: ongoing therapy, supervising dr conrado cruz. max 6 tabs in 24 hours docusate sodium 100 mg Capsule 100 mg PO BID 10 Days Qty: 20 0RF cefadroxil 500 mg capsule 500 mg PO BID 14 Days Qty: 28 0RF Continued simvastatin 40 mg Tablet 40 mg PO HS potassium 99 mg Tablet 99 mg PO HS metoprolol tartrate 50 mg Tablet 50 mg PO BID fiber Capsule 1 cap PO QPM Rx Instructions: after lunch cholecalciferol (vitamin D3) [Vitamin D3] 125 mcg (5,000 unit) Tablet 125 mcg PO QAM Eliquis 5 mg Tablet 5 mg PO BID aspirin 81 mg Capsule 81 mg PO QAM Discontinued acetaminophen [Acetaminophen Extra Strength] 500 mg Tablet 1,000 mg PO HS turmeric root extract 500 mg Capsule 500 mg PO QPM Rx Instructions: after lunch Discharge Orders: Discharge Order (Routine); Ordered 09/07/22 Ordered By: Rogers Quintero/Other Patient Handouts: Falls Prevent Adjust Living Space Admission Data Admit Date/Time: 09/06/22 11:56 Attending Provider: Peña Cruz Admit Provider: Peña Cruz Primary Care Provider: PCP,NO Other Providers: Ramy Ryan Natalie B. Other Interventions: Discharge Summary Assessment (RN) Last Done: 09/07/22 10:48
== END 2022-09-07 13:13 | disposition home health service (06) ==
LOC: 3N 06:17 → ASU 06:17